=== PATIENT | male | born 1980 | race Two or more races ===

== ENCOUNTER 2016-11-22 05:04 | Day surgery (SDC) | payer BC ==
[~2016-11-22] VITALS: Ht 177.8 cm; Wt 94.8 kg
[2016-11-22 06:27] VITALS: BP 128/78; Ht 177.8 cm; Wt 94.8 kg
[2016-11-22] MEDS ORDERED: TYLENOL W/CODEI1 TAB PO (09:17)
== END 2016-11-22 10:00 | disposition home or self-care (01) ==
LOC: D.OPS 05:04 → D.PAN 07:30 → D.OPS 10:00
DX: N47.1 Phimosis (principal); N47.2 Paraphimosis; Z01.812 Encounter for preprocedural laboratory examination